=== PATIENT | female | born 1995 | race Caucasian/White ===

== ENCOUNTER 2024-02-13 21:02 | Emergency (ER) | payer OTHER, SELFPAY ==
[2024-02-13] VITALS (15 sets, daily range): BP systolic 157; BP diastolic 86; PULSE 86–96; TEMP 36.7; O2SAT 99; BMI 34.2
--- NOTE | 2024-02-13 21:28 | ED.GENADUL1 ---
HPI HPI - General Adult General Chief complaint: Headache Stated complaint: ANXIETY Time Seen by Provider: 02/13/24 21:23 History of Present Illness HPI narrative: patient has past history of type I IDDM, anxiety. Presents complaining of a burning pain left neck, left shoulder for a couple of days on and off. Returned about 2 hours ago. Also associated with headache. No nausea or dyspnea. Denies history of heart disease in anyone young. No fever. States her mother told her it may be her heart and now she has become anxious also Related Data Allergies Allergy/AdvReac Type Severity Reaction Status Date / Time No Known Drug Allergies Allergy Verified 02/13/24 21:21 Opioid HPI Opioid Management Most Recent Opioid Data: Last Pain Scale 5 02/13/24 21:35 Review of Systems ROS Status of ROS 10 or more systems reviewed and unremarkable except as noted in history and below Exam Constitutional Vital Signs, click to edit/add: Last Vital Signs Temp 98.1 F 02/13/24 21:21 Pulse 92 H 02/13/24 21:21 Resp 16 02/13/24 21:21 BP 157/86 H 02/13/24 21:21 Pulse Ox 99 02/13/24 21:21 O2 Del Method Room Air 02/13/24 21:21 Common normals: no apparent distress, average body habitus, oriented x3, no limitations, healthy appearing, alert and well nourished [facility] Common normals: normocephalic and head/scalp atraumatic Eye Common normals: PERRL, EOMs intact bilaterally and conjunctivae normal Respiratory Common normals: normal respiratory effort, no retractions and no use of accessory muscles Cardio Common normals: regular rate, regular rhythm, S1 normal heart sound and S2 normal heart sound Extremity Common normals: normal to inspection and full ROM Neuro Common normals: oriented x3, CN's II-XII intact bilaterally and moves all extremities Psych Appearance: grossly normal Course Vital Signs Vital signs: Vital Signs Temperature 98.1 F 02/13/24 21:21 Pulse Rate 92 H 02/13/24 21:21 Respiratory Rate 16 02/13/24 21:21 Blood Pressure 157/86 H 02/13/24 21:21 Pulse Oximetry 99 02/13/24 21:21 Oxygen Delivery Method Room Air 02/13/24 21:21 Temperature 98.1 F 02/13/24 21:21 Pulse Rate 92 H 02/13/24 21:21 Respiratory Rate 16 02/13/24 21:21 Blood Pressure 157/86 H 02/13/24 21:21 Pulse Oximetry 99 02/13/24 21:21 Oxygen Delivery Method Room Air 02/13/24 21:21 Medical Decision Making MDM Narrative Medical decision making narrative: patient presents anxious concerned she may be having a heart attack. Her mother frightened her due to her symptoms of left neck and shoulder pain. burning pain. No weakness. Pain would also radiate into her head. EKG low voltage but otherwise normal. cxray clear. troponin and labs neg. Patient informed of very low likely patrick this is heart related. No family history of heart disease in someone her age. Her description is more c/w cervical neuropathy type pain. Adivsed to follow up with her PCP and continue workup as an out patient Lab Data Labs: Lab Results 02/13/24 Range/Units 21:47 WBC 7.0 (4.0-11.0) 10^3/uL RBC 4.57 (4.20-5.40) 10^6/uL Hgb 13.2 (12.0-16.0) g/dL Hct 39.2 (36.0-48.0) % MCV 85.8 (81.0-99.0) fL MCH 28.9 (26.7-34.0) pg MCHC 33.7 (29.9-35.2) g/dL RDW 12.7 (11.0-15.0) % Plt Count 305 (150-450) 10^3/uL MPV 10.7 (9.5-13.5) fL Neut % (Auto) 56.7 (43.0-75.0) % Lymph % (Auto) 33.5 (20.5-60.0) % [place] % (Auto) 7.9 (1.7-12.0) % Eos % (Auto) 1.1 (0.9-7.0) % Baso % (Auto) 0.7 (0.2-2.0) % Neut # (Auto) 4.0 (1.4-6.5) 10^3/uL Lymph # (Auto) 2.3 (1.2-3.8) 10^3/uL [place] # (Auto) 0.6 (0.3-0.8) 10^3/uL Eos # (Auto) 0.1 (0.0-0.7) 10^3/uL Baso # (Auto) 0.1 (0.0-0.1) 10^3/uL Abs Immat Gran (auto) 0.01 (0.00-0.03) 10^3/uL Imm/Tot Granulo (auto) 0.1 (0.0-0.5) % Sodium 139 (136-145) mmol/L Potassium 4.1 (3.5-5.1) mmol/L Chloride 106 (98-107) mmol/L Carbon Dioxide 25.6 (21.0-32.0) mmol/L Anion Gap 11.5 BUN 23.0 H (7.0-18.0) mg/dL Creatinine 0.77 (0.55-1.02) mg/dL Est GFR ( Amer) >60 (>=60) Est GFR (Non-Af Amer) >60 (>=60) BUN/Creatinine Ratio 29.9 Glucose 173 H (74-106) mg/dL Calcium 8.2 L (8.5-10.1) mg/dL Troponin I High Sens <4.0 L (4.0-51.3) pg/mL Discharge Plan Discharge Stand Alone Forms: Portal Instructions Chief Complaint: Headache Clinical Impression: Cervical neuropathy Patient Disposition: Home, Self-Care Print Language: Korean Instructions: Cervical Radiculopathy (ED) Additional Instructions: follow up with your family doctor this week for recheck Referrals: LANDY KELLY [Primary Care Provider] - 1 week
--- NOTE | 2024-02-13 21:35 | ECG_ITS ---
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
--- NOTE | 2024-02-13 21:35 | XR_ITS ---
[address] [address] Patient Name: CARLTON MURRAY MRN: [id number] date: 1995 Sex: F Assigned Patient Location: ER Current Patient Location: ER Accession/Order Number: [id number] Exam Date: 02/13/2024 22:05 Report Date: 02/13/2024 22:30 At the request of: ANGELA GILL Procedure: XR chest 1V EXAM: XR chest 1V HISTORY: chest pain COMPARISON: 04/08/2020 TECHNIQUE: AP upright chest x-ray FINDINGS: Lungs are clear without infiltrate or edema. Heart size normal for technique unchanged. No pleural effusion or pneumothorax. XR/XR chest 1V IMPRESSION: Stable chest x-ray, no acute abnormality. Lungs clear. Electronically authenticated by: WENDI SANDOVAL Date: 02/13/2024 22:30
[2024-02-13 22:03] LABS: Basophils Absolute Auto 0.1 10^3/uL (0.0-0.1); Basophils Percent Auto 0.7 % (0.2-2.0); Eosinophils Absolute Auto 0.1 10^3/uL (0.0-0.7); Eosinophils Percent Auto 1.1 % (0.9-7.0); Hematocrit 39.2 % (36.0-48.0); Hemoglobin 13.2 g/dL (12.0-16.0); Immature Granulocytes Abs Auto 0.01 10^3/uL (0.00-0.03); Immature Granulocytes Pct Auto 0.1 % (0.0-0.5); Lymphocytes Absolute Auto 2.3 10^3/uL (1.2-3.8); Lymphocytes Percent Auto 33.5 % (20.5-60.0); Mean Corpuscular HGB Conc 33.7 g/dL (29.9-35.2); Mean Corpuscular Hemoglobin 28.9 pg (26.7-34.0); Mean Corpuscular Volume 85.8 fL (81.0-99.0); Mean Platelet Volume 10.7 fL (9.5-13.5); Monocytes Absolute Auto 0.6 10^3/uL (0.3-0.8); Monocytes Percent Auto 7.9 % (1.7-12.0); Neutrophils Percent Auto 56.7 % (43.0-75.0); Platelet Count 305 10^3/uL (150-450); Red Blood Count 4.57 10^6/uL (4.20-5.40); Red Cell Distribution Width 12.7 % (11.0-15.0)
[2024-02-13 22:48] LABS: Anion Gap 11.5; BUN Creatinine Ratio 29.9; Calcium 8.2 mg/dL (8.5-10.1); Carbon Dioxide 25.6 mmol/L (21.0-32.0); Chloride 106 mmol/L (98-107); Estimated GFR (African America >60 (>=60); Estimated GFR (Non-African Ame >60 (>=60); Glucose 173 mg/dL (74-106); Potassium 4.1 mmol/L (3.5-5.1); Sodium 139 mmol/L (136-145); Troponin I High Sensitivity <4.0 pg/mL (4.0-51.3)
== END 2024-02-13 23:23 | disposition home or self-care (01) ==
PROVIDERS: Emergency Provider Internal Medicine; PCP Family Medicine
DX: G54.2 Cervical root disorders, not elsewhere classified (principal); E10.9 Type 1 diabetes mellitus without complications
CPT/HCPCS: 36415; 71045; 80048; 84484; 85025; 93005; 99285